=== PATIENT | female | born 1995 | race Caucasian/White ===

== ENCOUNTER 2016-08-22 22:34 | Emergency (ER) | payer OTHER ==
[~2016-08-22] VITALS: Ht 160 cm; Wt 63.7 kg
[2016-08-22 22:42] VITALS: TEMP 37.4; Ht 160 cm; Wt 63.7 kg
[2016-08-22] MEDS ORDERED: LEVOTAB3 PO (23:14)
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
[2016-08-22 23:52] VITALS: BP 127/82; PULSE 89; O2SAT 98
--- NOTE | 2016-08-23 06:37 | DIAGNOSTIC IMAGING REPORT ---
RIGHT SHOULDER MIN 2 VIEWS ROUTINE CLINICAL HISTORY: Right shoulder pain following fall. COMPARISON: None FINDINGS: Alignment of the right shoulder is anatomic. No acute fracture is identified. Joint spaces are preserved. IMPRESSION: No acute fracture or dislocation of the right shoulder. Electronically signed by: Skip Paz M.D. 08/23/2016 6:36 AM Dictated Date/Time: 08/23/2016 6:35 AM
== END 2016-08-22 23:52 | disposition home or self-care (01) ==
LOC: C.EDB 22:35 → C.EDA 23:52
DX: S40.011A Contusion of right shoulder, initial encounter (principal); W01.0XXA Fall on same level from slipping, tripping and stumbling without subsequent striking against object, initial encounter; Y93.83 Activity, rough housing and horseplay

== ENCOUNTER 2017-03-27 20:10 | Emergency (ER) | payer OTHER ==
[~2017-03-27] VITALS: Ht 160 cm; Wt 62.3 kg
[~2017-03-27 20:10] MED LIST: LEVOTAB3 PO
[2017-03-27 20:18] VITALS: TEMP 36.8; Ht 160 cm; Wt 62.3 kg
[2017-03-27] MEDS ORDERED: IBUPROFEN 600 MG TAB PO STA (20:37)
--- NOTE | 2017-03-27 21:18 | DIAGNOSTIC IMAGING REPORT ---
L ANKLE MIN 3 VIEWS ROUTINE CLINICAL HISTORY: left ankle pain s/p fall trauma. Pain. COMPARISON: None. DISCUSSION: The bones and joint spaces appear intact. There is no evidence of fracture, dislocation or bony disease. There is no evidence for soft tissue swelling. IMPRESSION: Negative study. The above report was generated using voice recognition software. It may contain grammatical, syntax or spelling errors. Electronically signed by: Josh Waggoner M.D. 03/27/2017 9:17 PM Dictated Date/Time: 03/27/2017 9:16 PM
--- NOTE | 2017-03-27 21:19 | DIAGNOSTIC IMAGING REPORT ---
L KNEE 3 VIEWS CLINICAL HISTORY: left lateral knee pain s/p fall trauma. Pain. COMPARISON: None. DISCUSSION: The bones and joint spaces appear intact. There is no evidence of fracture, dislocation or bony disease. There is no evidence for soft tissue swelling. IMPRESSION: Negative study. The above report was generated using voice recognition software. It may contain grammatical, syntax or spelling errors. Electronically signed by: Josh Waggoner M.D. 03/27/2017 9:18 PM Dictated Date/Time: 03/27/2017 9:18 PM
--- NOTE | 2017-03-27 21:19 | DIAGNOSTIC IMAGING REPORT ---
PELVIS 1 OR 2 VIEW ROUTINE CLINICAL HISTORY: left pelvis pain s/p fall trauma. Pain. COMPARISON: None. DISCUSSION: The bones and joint spaces appear intact. There is no evidence of fracture, dislocation or bony disease. There is no evidence for soft tissue swelling. IMPRESSION: Negative study. The above report was generated using voice recognition software. It may contain grammatical, syntax or spelling errors. Electronically signed by: Josh Waggoner M.D. 03/27/2017 9:17 PM Dictated Date/Time: 03/27/2017 9:17 PM
--- NOTE | 2017-03-27 21:37 | EMERGENCY ROOM VISIT NOTE ---
ED Visit Note First contact with patient: 20:29 CHIEF COMPLAINT: Left Ankle pain , left knee pain, left hip pain HISTORY OF PRESENT ILLNESS: This 21-year-old female patient presents to the emergency department one day after sustaining an injury to the left ankle, left knee, and left hip, when she tripped in a pothole while walking to her car in the parking lot at work. The patient states she has been experiencing hip pain since November of this year, but did not have insurance, so was unable to seek any workup or treatment at that time. The patient states her hip pain was improving , but last night as she was walking to her car, she tripped in a pothole, twisting her left ankle, and landing on her left knee and hip. She has been experiencing significant pain in all of these areas since the incident. She has been able to walk, however this causes significant discomfort. The patient did go to work today, but was having difficulty getting around. Her pain is in the lateral pelvis, lateral left knee, and lateral left ankle. She does report history of 7-8 ankle sprains in the past. All areas of pain are worse on palpation and with movement. The patient denies any foot pain. The patient rates the pain as sharp and 7/10. The patient is able to bear weight on the foot. Constant pain, worse with movement, weight bearing, and the dependent position. The patient is able to move their toes. No numbness or weakness of the foot, no laceration. The patient has not had a previous fracture to this ankle, knee, or hip. The patient has taken 600mg ibuprofen last night without relief of the pain. The patient denies any other injury. REVIEW OF SYSTEMS: A 6 system review of systems was completed with positives and pertinent negatives listed in the HPI. ALLERGIES: None MEDICATIONS: Wellbutrin PMH: Depression SOCIAL HISTORY: The patient lives locally with family. She denies drug, alcohol use. The patient does admit to smoking cigarettes daily. PHYSICAL EXAM: Vital Signs: Reviewed Nurse's notes, vital signs stable. GENERAL : This is a 21-year-old female, no acute distress, but appears in pain, well- developed, well-nourished. MENTAL STATUS: Alert, oriented to person place and time, and cooperative. MUSCULOSKELETAL: The left ankle is swollen and tender over the lateral malleolus, but the skin is intact and there is no ligamentous instability. There is no fifth metatarsal tenderness. There is no tenderness over the rest of the foot. There is no calf or tibia/fibular tenderness. There is no visual deformity. The foot and toes are warm and well-perfused. Dorsalis pedis pulse 2+. Sensation to pain and light touch is intact. The left knee is tender on the lateral aspect. Armando's test is negative. Mati's test was negative. Anterior and posterior drawer tests are negative. There is no discomfort or laxity with varus or valgus stressing. There is tenderness on the iliac crest of the left pelvis. There is no bruising, ecchymosis, or erythema. Capillary refill less than 2 seconds. RADIOLOGY: Left Ankle X-Ray: L ANKLE MIN 3 VIEWS ROUTINE CLINICAL HISTORY: left ankle pain s/p fall trauma. Pain. COMPARISON: None. DISCUSSION: The bones and joint spaces appear intact. There is no evidence of fracture, dislocation or bony disease. There is no evidence for soft tissue swelling. IMPRESSION: Negative study. Left Knee X-Ray: L KNEE 3 VIEWS CLINICAL HISTORY: left lateral knee pain s/p fall trauma. Pain. COMPARISON: None. DISCUSSION: The bones and joint spaces appear intact. There is no evidence of fracture, dislocation or bony disease. There is no evidence for soft tissue swelling. IMPRESSION: Negative study. Pelvis X-Ray: PELVIS 1 OR 2 VIEW ROUTINE CLINICAL HISTORY: left pelvis pain s/p fall trauma. Pain. COMPARISON: None. DISCUSSION: The bones and joint spaces appear intact. There is no evidence of fracture, dislocation or bony disease. There is no evidence for soft tissue swelling. IMPRESSION: Negative study. EMERGENCY DEPARTMENT COURSE: I examined the patient. The patient was given ibuprofen in the emergency department. X-rays of the left pelvis, left knee, left ankle were reviewed by myself and read by radiology and reveal no acute abnormalities. I discussed results with the patient, who does immediately began crying. She states she is very frustrated because she has been experiencing this pain for several months, and we did not determine the etiology of her pain. I advised her that we have ruled out emergent causes of her pain or fracture, but I strongly encouraged her to follow up with orthopedics for more of a workup regarding her chronic hip pain. I discussed options for treatment including a knee immobilizer, gel ankle splint, and crutches. I do feel that keeping the patient from bearing weight on the left extremity will help with her symptoms, so did provide her with crutches. Due to the patient's history of ankle sprains, I do feel that providing her with a gel splint to help with support will be beneficial. A gel splint was applied to the ankle under my direction and the position was satisfactory. Neurovascular status was rechecked and intact. The patient was instructed on the use of crutches. The patient was discharged home in good condition. DIFFERENTIAL DIAGNOSIS: Fracture, contusion, sprain, strain, and others DIAGNOSIS: Left ankle sprain, left knee contusion, left pelvic contusion DISCHARGE INSTRUCTIONS: ORTHOPEDIC INSTRUCTIONS: Ibuprofen(Motrin, Advil) may be used for fever or pain. Use 600mg every six hours as needed. Take with food. Avoid using more than 2400mg in a 24 hour period. Do not use 2400mg per day for more than three consecutive days without physician direction. Prolonged inappropriate use can lead to stomach upset or ulcers. (AND/OR) Acetaminophen(Tylenol) may be used for fever or pain. Use 1000mg every six hours as needed. Avoid using more than 3000mg in a 24 hour period. Ice compresses for 20 minutes at a time four times daily for 2-3 days. Use the crutches as instructed. Avoid weight-bearing on the left side until it is tolerable. Rest and elevate your injury. Wear the ankle splint until your pain has subsided. Return to the ER immediately for any numbness, tingling, severe pain, extreme swelling in the extremity or as needed. Call [facility], [phone], tomorrow, to arrange follow up for your injury and for consult regarding chronic left hip/pelvis pain. Follow-up with your primary care physician in 2 to 3 days for a recheck of your current condition. Problem List Medical Problems: (1) History of Status: Resolved (2) Miscarriage Status: Resolved Current/Historical Medications Scheduled Bupropion (Wellbutrin-Xl), 300 MG PO DAILY Allergies Coded Allergies: No Known Allergies (Unverified , 08/22/16) Vital Signs Date Time Temp Pulse Resp B/P (MAP) Pulse Ox O2 Delivery O2 Flow Rate FiO2 03/27/17 22:13 99 18 120/89 98 Room Air 03/27/17 20:18 36.8 106 18 135/79 100 Room Air Medications Administered Medications (Trade) Dose Ordered Sig/Laverne Route Start Time Stop Time Status Last Admin Dose Admin Ibuprofen (Motrin Tab) 600 mg NOW STAT PO 03/27/17 20:37 03/27/17 20:40 DC 03/27/17 20:49 600 MG Departure Information Impression Primary Impression: Left ankle sprain Additional Impressions: Contusion of left hip Chronic left hip pain Contusion of left knee Fall from standing Dispostion Home / Self-Care Condition CONVENIENCE OF CELL LINER Referrals No Doctor, Assigned (PCP) Jakub Apodaca MD Patient Instructions ED Contusion Hip, ED Sprain Ankle, [facility] Additional Instructions ORTHOPEDIC INSTRUCTIONS: Ibuprofen(Motrin, Advil) may be used for fever or pain. Use 600mg every six hours as needed. Take with food. Avoid using more than 2400mg in a 24 hour period. Do not use 2400mg per day for more than three consecutive days without physician direction. Prolonged inappropriate use can lead to stomach upset or ulcers. (AND/OR) Acetaminophen(Tylenol) may be used for fever or pain. Use 1000mg every six hours as needed. Avoid using more than 3000mg in a 24 hour period. Ice compresses for 20 minutes at a time four times daily for 2-3 days. Use the crutches as instructed. Avoid weight-bearing on the left side until it is tolerable. Rest and elevate your injury. Wear the ankle splint until your pain has subsided. Return to the ER immediately for any numbness, tingling, severe pain, extreme swelling in the extremity or as needed. Call [facility], [phone], tomorrow, to arrange follow up for your injury and for consult regarding chronic left hip/pelvis pain. Follow-up with your primary care physician in 2 to 3 days for a recheck of your current condition. Problem Qualifiers Primary Impression: Left ankle sprain Encounter type: initial encounter Involved ligament of ankle: unspecified ligament Qualified Codes: S93.402A - Sprain of unspecified ligament of left ankle, initial encounter Additional Impressions: Contusion of left hip Encounter type: initial encounter Qualified Codes: S70.02XA - Contusion of left hip, initial encounter Contusion of left knee Encounter type: initial encounter Qualified Codes: S80.02XA - Contusion of left knee, initial encounter Fall from standing Encounter type: initial encounter Qualified Codes: W19.XXXA - Unspecified fall, initial encounter
[2017-03-27 22:13] VITALS: BP 120/89; PULSE 99; O2SAT 98
[2017-03-27] MEDS ORDERED: BUPRTAB51 PO (23:14)
== END 2017-03-27 22:14 | disposition home or self-care (01) ==
LOC: C.EDB 20:12 → C.EDD 22:14
DX: S93.402A Sprain of unspecified ligament of left ankle, initial encounter (principal); S70.02XA Contusion of left hip, initial encounter; S80.02XA Contusion of left knee, initial encounter; W17.2XXA Fall into hole, initial encounter; Y92.89 Other specified places as the place of occurrence of the external cause; Y99.0 Civilian activity done for income or pay; G89.29 Other chronic pain; F32.9 Major depressive disorder, single episode, unspecified; Z79.899 Other long term (current) drug therapy

== ENCOUNTER → 2017-03-30 | Outpatient (CLI) | payer OTHER ==
[~2017-03-30] MED LIST changes: +BUPRTAB51 PO; -LEVOTAB3 PO
== END | disposition home or self-care (01) ==
LOC: C.RDSM 15:11
PROVIDERS: ATTEND Orthopaedic Surgery
DX: M25.552 Pain in left hip (principal)

== ENCOUNTER → 2017-03-31 | Outpatient (CLI) | payer OTHER ==
--- NOTE | 2017-03-31 21:03 | DIAGNOSTIC IMAGING REPORT ---
PELVIS/LEFT HIP MRI HISTORY: Fall. Left hip pain. TECHNIQUE: Multiplanar multisequence MRI of the pelvis and left hip were performed without the use of intravenous contrast. COMPARISON STUDY: Pelvis radiograph 03/30/2017. FINDINGS: No fracture or dislocation within the pelvis or hips. No hip effusions. Bilateral hip cartilage spaces are maintained. Normal marrow signal intensity within the visualized osseous structures. Surrounding soft tissues are within normal limits. The left hip labrum appears grossly intact. IMPRESSION: No significant abnormality within the pelvis or hips. Electronically signed by: Edgar Ott M.D. 03/31/2017 9:02 PM Dictated Date/Time: 03/31/2017 8:55 PM
== END | disposition home or self-care (01) ==
LOC: C.MRI 19:01
PROVIDERS: ATTEND Orthopaedic Surgery
DX: M25.552 Pain in left hip (principal)